=== PATIENT | female | born 1940 | race Caucasian/White ===

== ENCOUNTER 2017-10-02 21:27 | Emergency (ER) | payer OTHER ==
[2017-10-02] MEDS: HYDROmorphONE 1 MG/ML SYG IV ×2 (21:49→21:56)
[2017-10-02] MEDS: ONDANSETRON 4 MG INJ IV ×2 (21:49→21:56)
[2017-10-02] MEDS ORDERED: ONDANSETRON 4 MG INJ (21:52)
[2017-10-02] MEDS ORDERED: HYDROmorphONE 1 MG/ML SYG (21:52)
[2017-10-02] MEDS: SOD CHLORIDE 0.9% 1,000 ML IV (21:56)
[2017-10-02] MEDS ORDERED: PROPOFOL 20 ML (22:42)
[2017-10-02] MEDS: PROPOFOL 200 MG INJ IV (23:00)
== END 2017-10-03 01:56 | disposition home or self-care (01) ==
LOC: E/R 10-03 01:56
DX: S82.52XA Displaced fracture of medial malleolus of left tibia, initial encounter for closed fracture (principal); J45.909 Unspecified asthma, uncomplicated; I10 Essential (primary) hypertension; W18.39XA Other fall on same level, initial encounter; Y92.009 Unspecified place in unspecified non-institutional (private) residence as the place of occurrence of the external cause; Z96.652 Presence of left artificial knee joint
CPT/HCPCS: 27818; 73590; 73610-RT; 73630; 96374; 96375; 99285-25